=== PATIENT | female | born 1945 ===

== ENCOUNTER 2023-08-02 05:15 | Day surgery (SDC) | payer OTHER ==
[2023-07-28 10:22] LABS: PH,URINE 5.5 (5.0-8.0); URINE APPEARANCE Clear; URINE BILIRRUBIN Negative (NEGATIVE); URINE BLOOD Small; URINE COLOR Yellow; URINE GLUCOSE Negative (NEGATIVE); URINE LEUKOCYTE Trace; URINE NITRATE Negative; URINE PROTEIN Negative (NEGATIVE); URINE UROBILINOGEN 0.2 E.U./dl
[2023-07-28 10:25] LABS: URINE BACTERIA 6.2 uL (0.0-1933); URINE EPITHELIAL CELLS 3.2 uL (0.0-38.8); URINE RBC 7.9 uL (0.0-20.8); URINE WBC 3.8 uL (0.0-23.2)
[2023-07-28 10:29] LABS: HEMATOCRIT 33.3 % (36.0-45.00); HEMOGLOBIN 10.6 g/dL (12.0-15.00); MEAN CELL VOLUME 82.9 fL (80.00-100.00); MEAN CORPUSCULAR HEMOGLOBIN 26.3 pg (27.00-32.0); MEAN CORPUSCULAR HGB CONC 31.7 g/dl (32.0-36.0); PLATELET COUNT 259 K/uL (150-450); RED BLOOD COUNT 4.01 M/uL (4.00-6.00); RED CELL DISTRIBUTION WIDTH 14.5 % (11.5-14.5)
[2023-07-28 11:31] LABS: ALBUMIN 3.8 gm/dL (3.4-5.0); BILIRUBIN TOTAL 0.38 mg/dL (0.3-1.2); CALCIUM 9.5 mg/dL (8.5-10.1); CREATININE SERUM 0.77 mg/dL (0.55-1.02); GFR 72.31; GLOBULINA 3.7 G/DL (2.4-3.5); PARTIAL THROMBOPLASTIN TIME 30.6 SECONDS (22.0-34.0); POTASSIUM 4.27 mEq/L (3.5-5.1); PROTHROMBIN TIME 10.5 SECONDS (9.0-11.5); TOTAL PROTEIN 7.5 gm/dL (6.4-8.2)
[~2023-08-02 05:15] MED LIST: BISOPROLOL-HCT1 EAC1 PO; COZAAR100 MG PO; POVIDONE-IODINE 118 ML BOTT TOP ONE; ROSUVASTATIN CA20 MG PO; SYNTHROID75 MCG PO
[2023-08-02] MEDS ORDERED: ONDANSETRON HCL 2 MG/ML VIAL IV PRN (08:45)
[2023-08-02] MEDS ORDERED: MORPHINE SULFATE 4 MG/ML VIAL IV PRN (08:45)
[2023-08-02] MEDS ORDERED: KETOROLAC TROMETHAMINE 30 MG VIAL IV PRN (08:45)
[2023-08-02] MEDS ORDERED: FAMOTIDINE/PF 20 MG/2 ML VIAL IV ONE (08:45)
[2023-08-02] MEDS ORDERED: FAMOTIDINE/PF 20 MG/2 ML VIAL ONE (09:19)
[2023-08-02] MEDS ORDERED: ENALAPRILAT DIHYDRATE 1.25 MG/ML VIAL IV ONE (11:15)
== END 2023-08-02 13:05 | disposition home or self-care (01) ==
LOC: CIR.AMB 05:15
PROVIDERS: ATTEND General Practice
DX: N84.1 Polyp of cervix uteri (principal); N84.0 Polyp of corpus uteri; R93.89 Abnormal findings on diagnostic imaging of other specified body structures; Z88.0 Allergy status to penicillin; I10 Essential (primary) hypertension; E78.5 Hyperlipidemia, unspecified